=== PATIENT | female | born 1945 | race Caucasian/White ===

== ENCOUNTER 2025-01-30 08:43 | Emergency (ER) | payer OTHER, MEDICAID, SELFPAY ==
--- NOTE | ~2025-01-30 | XR_ITS ---
Examination: XR abdomen/kub 1V Clinical History: constipation Comparison: None Technique: 2 views supine AP abdomen Findings: Lung bases clear. Scattered colonic gas and stool. Stool volume not markedly decreased. Small bowel loops poorly seen. Pelvic phleboliths. No abnormal abdominal calcifications. No acute bony abnormality. IMPRESSION: 1. No acute abnormality identified. Reviewed, dictated and finalized at location R. SSOR
[2025-01-30 08:44] VITALS: BP 133/77; PULSE 88; RESP 20; O2SAT 95
[2025-01-30 09:04] VITALS: BP 120/75; PULSE 89; RESP 20; TEMP 36.6; O2SAT 96
[2025-01-30] MEDS: METHYLNALTREXONE 12 MG/0.6 ML VIAL SUB-Q (10:14)
--- NOTE | 2025-01-30 10:29 | ED_ITS ---
HPI - Abdominal Pain General Chief Complaint: Abdominal Pain Stated Complaint: constipated Time Seen by Provider: 01/30/25 09:16 History of Present Illness HPI narrative: Patient is a 79-year-old female who presents ER with constipation. Has been unable to go over last week. She has been taking hydrocodone recently for some pain. She has given herself a Fleet enema and taking MiraLax without significant improvement. She is passing gas. No history of previous abdominal surgery according the patient. She is not vomiting. Related Data Allergies Allergy/AdvReac Type Severity Reaction Status Date / Time morphine Allergy Agitated Verified 01/30/25 08:58 Review of Systems Review of Systems: All systems reviewed & are unremarkable except as noted in HPI and below Constitutional: Constitutional: Reports no additional constitutional complaints ENT: Reports system reviewed and no additional complaints, except as documented Cardiovascular: Cardiovascular: Reports no additional cardiovascular complaint s Respiratory: Respiratory: Reports no additional respiratory complaints Gastrointestinal: Gastrointestinal: Reports no additional gastrointestinal complaints PMFSH Past Medical History Medical History (Updated 01/30/25 @ 13:56 by Shahid Spence MD) Hyperlipidemia Hypertension Depression Exam Narrative: GENERAL: Well-appearing, well-nourished, and in no acute distress. HEAD: Normocephalic, atraumatic. ENT: Mucous membranes moist. CHEST: Clear to auscultation. No respiratory distress. HEART: Regular rate and rhythm. Normal peripheral pulses. ABDOMEN: Soft, nontender, nondistended. EXTREMITIES: Normal range of motion. No edema. SKIN: Warm, dry, no rash. NEURO: Alert and oriented x3. PSYCH: Normal mood and affect. Course Course Emergency Course: Patient with the successful bowel movement after Relistor and soapsuds enema. Appropriate for discharge home. Vital Signs Vital signs: Vital Signs Pulse Rate 88 01/30/25 08:44 Respiratory Rate 20 01/30/25 08:44 Blood Pressure 133/77 01/30/25 08:44 Pulse Oximetry 95 01/30/25 08:44 Oxygen Delivery Room Air 01/30/25 08:44 Temperature 97.8 F 01/30/25 09:04 Pulse Rate 80 01/30/25 11:50 Respiratory Rate 16 01/30/25 11:50 Blood Pressure 110/87 01/30/25 11:50 Pulse Oximetry 93 01/30/25 11:50 Oxygen Delivery Room Air 01/30/25 08:44 MDM - Abdominal Pain Imaging Data Radiologist's impression: ITS Impressions Abdomen X-Ray 01/30/25 11:40 IMPRESSION: 1. No acute abnormality identified. Discharge Plan Discharge Clinical Impression: Constipation Patient Disposition: Home Condition: Stable Instructions: Constipation (ED) Additional Instructions: Take MiraLax 1 to 2 times a day site you can have a regular bowel movement. If you have diarrhea discontinue the laxative. Patient Language: Slovak Prescriptions: New polyethylene glycol 3350 [Miralax] 17 gram/dose powder 17 g PO BID Qty: 238 0RF Follow-up/Referrals: Timo Alex MD [Physician, Internal Medicine] - 1 Week PHYSICIAN NOT ON STAFF,NONSTAFF [Primary Care Provider]
[2025-01-30 11:50] VITALS: BP 110/87; PULSE 80; RESP 16; O2SAT 93
[2025-01-30 14:55] VITALS: BP 158/90; PULSE 87; RESP 18; O2SAT 99
== END 2025-01-30 15:16 | disposition home or self-care (01) ==
PROVIDERS: Emergency Provider Emergency Medicine
DX: K59.00 Constipation, unspecified (principal); E78.5 Hyperlipidemia, unspecified; I10 Essential (primary) hypertension
CPT/HCPCS: 74018; 96372; 99283; J2212